=== PATIENT | female | born 1985 | race Caucasian/White ===

== ENCOUNTER 2019-03-30 05:29 | Emergency (ER) | payer SELFPAY ==
--- NOTE | 2019-03-30 05:42 | EDM.PDOC ---
ED HPI GENERAL MEDICAL PROBLEM - General Chief Complaint: Drug or Alcohol Abuse Stated Complaint: AMB Time Seen by Provider: 03/30/19 05:31 - History of Present Illness INITIAL COMMENTS - FREE TEXT/NARRATIVE: HISTORY AND PHYSICAL: History of present illness: The patient is a 34-year-old female who presents via EMS after drinking a large amount of alcohol and doing a line of cocaine and having a small episode of vomiting which had blood in it. Initially EMS arrived at the scene and the patient did not want to, but a friend convinced her to come for evaluation. Here in the ED the patient is denying chest pain shortness of breath abdominal pain and has no nausea. She does not want a large evaluation nor does she want any medications for nausea. She says that she has no extremity complaints and denies . She says that she smokes cigarettes and she has done cocaine in the past and this was not her first event. Review of systems: As per history of present illness and below otherwise all systems reviewed and negative. Past medical history: As per history of present illness and as reviewed below otherwise noncontributory. Surgical history: As per history of present illness and as reviewed below otherwise noncontributory. Social history: No reported history of drug or alcohol abuse. Family history: As per history of present illness and as reviewed below otherwise noncontributory. Physical exam: General: Well-developed well-nourished female who is nontoxic and vital signs are noted by me. HEENT: Atraumatic, normocephalic, pupils reactive, sclerae are slightly injected negative for conjunctival pallor or scleral icterus, mucous membranes moist, throat clear, neck supple, nontender, trachea midline. There is no cervical adenopathy or nuchal rigidity Lungs: Clear to auscultation, breath sounds equal bilaterally, chest nontender. Heart: S1S2, regular, negative for clicks, rubs, or JVD. Abdomen: Soft, nondistended, nontender. On palpation of the upper abdomen and the epigastrium there is absolute no tenderness rebound or guarding. Negative for masses or hepatosplenomegaly. NABS Pelvis: Deferred Genitourinary: Deferred. Rectal: Deferred. Extremities: Atraumatic, no edema and full range of motion without defects or deficits Neurovascular unremarkable. Neuro: Awake, alert, oriented. Cranial nerves II through XII unremarkable. Cerebellum unremarkable. Motor and sensory unremarkable throughout. Exam nonfocal. Diagnostics: EKG and Accu-Chek Therapeutics: Patient denies any interventions such as Zofran and fluids. The patient has a friend at bedside who will take her home and she would like no further evaluation at this time. Impression: Recent alcohol and drug use stable, episode of vomiting Definitive disposition and diagnosis as appropriate pending reevaluation and review of above. ED ROS GENERAL - Review of Systems Review Of Systems: ROS reveals no pertinent complaints other than HPI. ED EXAM, GENERAL - Physical Exam Exam: See Below (See dictation) Course - Orders/Labs/Meds Orders: Active Orders 24 hr Category Date Time Status Blood Glucose Check, Bedside [RC] ONETIME Care 03/30/19 05:37 Ordered EKG Documentation Completion [RC] STAT Care 03/30/19 05:37 Ordered Departure - Departure Time of Disposition: 05:40 Disposition: Home, Self-Care 01 Condition: Good Clinical Impression: Alcohol use, Drug use - Discharge Information Additional Instructions: The following information is given to patients seen in the emergency department who are being discharged to home. This information is to outline your options for follow-up care. We provide all patients seen in our emergency department with a follow-up referral. The need for follow-up, as well as the timing and circumstances, are variable depending upon the specifics of your emergency department visit. If you don't have a primary care physician on staff, we will provide you with a referral. We always advise you to contact your personal physician following an emergency department visit to inform them of the circumstance of the visit and for follow-up with them and/or the need for any referrals to a consulting specialist. The emergency department will also refer you to a specialist when appropriate. This referral assures that you have the opportunity for followup care with a specialist. All of these measure are taken in an effort to provide you with optimal care, which includes your followup. Under all circumstances we always encourage you to contact your private physician who remains a resource for coordinating your care. When calling for followup care, please make the office aware that this follow-up is from your recent emergency room visit. If for any reason you are refused follow-up, please contact the [facility] emergency department at and ask to speak to the emergency department charge nurse. [facility]- Internal Medicine and Family [place] [id number] [place] [address] Push hydration and avoid alcohol use. Please titrate to refrain from using drugs and follow-up with your provider in the clinic or one of hours for reevaluation and further care. You may use [id number] antacids such as Mylanta or Pepto-Bismol if you have and upset stomach. Eating bland diet for the next 24 hours. Return to ER as needed as discussed - My Orders Last 24 Hours: My Active Orders 03/30/19 05:37 Blood Glucose Check, Bedside [RC] ONETIME EKG Documentation Completion [RC] STAT - Assessment/Plan Last 24 Hours: My Active Orders 03/30/19 05:37 Blood Glucose Check, Bedside [RC] ONETIME EKG Documentation Completion [RC] STAT
== END 2019-03-30 05:56 | disposition home or self-care (01) ==
LOC: MERGE 05:29 → MW.ED 05:29
DX: F19.90 Other psychoactive substance use, unspecified, uncomplicated (principal); R11.10 Vomiting, unspecified; Z72.89 Other problems related to lifestyle
CPT/HCPCS: 82962; 93005; 99283; 99284-25

== ENCOUNTER 2022-07-18 10:48 | Emergency (ER) | payer OTHER ==
[2022-07-18] MEDS ORDERED: Ondansetron 4 MG/2 ML SDV IVPUSH ONE (10:52)
[2022-07-18] MEDS ORDERED: Ketorolac 30 MG/ML SDV IVPUSH ONE (10:52)
[2022-07-18] MEDS ORDERED: Sodium Chloride 0.9% 1,000 ML IV ONE (10:52)
[2022-07-18] MEDS ORDERED: Morphine 4 MG/ML Syringe IVPUSH ONE (10:56)
[2022-07-18] MEDS ORDERED: Tamsulosin 0.4 MG Cap.ER PO ONE (11:41)
[2022-07-18 11:47] LABS: CARBON DIOXIDE,CO2 26.7 mmol/L (21.0-32.0); POTASSIUM,K 3.8 mmol/L (3.5-5.1)
== END 2022-07-18 13:01 | disposition home or self-care (01) ==
LOC: MW.ED 10:48
DX: N13.2 Hydronephrosis with renal and ureteral calculous obstruction (principal)
CPT/HCPCS: 36415; 74176; 80053; 81001; 81025; 83690; 85025; 96361; 96374; 96375; 99284; A9270; J1885; J2405; J7030

== ENCOUNTER 2024-05-22 04:57 | Inpatient (IN) | payer OTHER ==
[2024-05-22] MEDS ORDERED: Methylergonovine 0.2 MG/1 ML Amp IM PRN (05:06)
[2024-05-22] MEDS ORDERED: Nalbuphine 10 MG/1 ML Vial IVPUSH PRN (05:06)
[2024-05-22] MEDS ORDERED: Water For Irrigation,Sterile 1,000 ML Container IRR PRN (05:06)
[2024-05-22] MEDS ORDERED: Sodium Chloride 0.9% 20 ML SDV IV PRN (05:06)
[2024-05-22] MEDS ORDERED: Terbutaline 1 MG/ML SDV SUBCUT PRN (05:06)
[2024-05-22] MEDS ORDERED: Ondansetron 4 MG/2 ML SDV IVPUSH PRN (05:06)
[2024-05-22] MEDS ORDERED: Carboprost Tromethamine 250 MCG/1 mL Vial IM PRN (05:06)
[2024-05-22] MEDS ORDERED: Sodium Chloride 0.9% 10 ML Syringe FLUSH PRN (05:06)
[2024-05-22] MEDS ORDERED: Sodium Chloride 0.9% 2.5 ML Syringe FLUSH PRN (05:06)
[2024-05-22] MEDS ORDERED: Lidocaine 1% 50 ML MDV INJECT PRN (05:06)
[2024-05-22] MEDS ORDERED: Oxytocin/0.9 % Sodium Chloride 30 UNIT/500 ML BAG IV SCH (05:15)
[2024-05-22 05:53] LABS: HEMATOCRIT 32.9 % (37.0-47.0); HEMOGLOBIN 11.5 g/dL (12.0-16.0); MEAN CORPUSCULAR HEMOGLOBIN 31.2 pg (28.0-32.0); MEAN CORPUSCULAR VOLUME 89.2 fL (83.0-99.0); MEAN PLATELET VOLUME 12.9 fL (9.4-12.3); PLATELET COUNT,PLT 150 K/uL (150-400); RED BLOOD CELL COUNT 3.69 M/uL (4.10-5.30); WHITE BLOOD CELL COUNT,WBC 9.81 K/uL (3.9-11.3)
[2024-05-22] MEDS: Dinoprostone 10 MG Insert VAG PRN ×2 (06:08→22:40)
[2024-05-22] MEDS ORDERED: ePHEDrine 50 MG/ML SDV IVPUSH PRN (09:40)
[2024-05-22] MEDS ORDERED: dexmedeTOMIDine HCl 200 MCG/2 ML SDV EPIDUR SCH (09:45)
[2024-05-23] MEDS: Butorphanol 2 MG/ML SDV IVPUSH PRN (14:09)
[2024-05-24] MEDS: Lactated Ringers 1,000 ML IV SCH (01:59)
[2024-05-24] MEDS: Oxytocin/0.9 % Sodium Chloride 30 UNIT/500 ML BAG IV SCH (02:00)
[2024-05-24] MEDS: Ropivacaine HCl/PF 400 MG in Premix Bag 1 BAG EPIDUR SCH (09:27)
[2024-05-24] MEDS: Phenylephrine HCl In 0.9% NaCl 1 MG/10 ML Syringe IVPUSH PRN (09:35)
[2024-05-24] MEDS: Misoprostol 200 MCG Tab PO PRN (11:37)
[2024-05-24] MEDS ORDERED: Oxytocin 10 Units/1 ML SDV IM PRN (11:49)
[2024-05-24] MEDS ORDERED: Famotidine 20 MG Tab PO PRN (11:49)
[2024-05-24] MEDS ORDERED: Ibuprofen 800 MG Tab PO PRN (11:49)
[2024-05-24] MEDS ORDERED: Docusate Sodium 100 MG Cap PO PRN (11:49)
[2024-05-24] MEDS ORDERED: Simethicone 80 MG Tab.Chew PO PRN (11:49)
[2024-05-24] MEDS ORDERED: Enoxaparin 40 MG/0.4 ML Syringe SUBCUT SCH (12:00)
[2024-05-24] MEDS: fentaNYL 100 MCG/2 ML SDV ONE (12:06)
[2024-05-24] MEDS: Lanolin 100% Cream 7 GM Tube TOP PRN (12:18)
[2024-05-24 12:21] LABS: PH,UMBILICAL ARTERIAL 7.084 (7.18-7.38); PH,UMBILICAL VENOUS 7.169 (7.25-7.45)
[2024-05-24] MEDS ORDERED: Misoprostol 200 MCG Tab PO PRN (12:38)
[2024-05-24] MEDS: Hydrocortisone 2.5% Crm 30 GM Tube TOP SCH (18:50)
[2024-05-24] MEDS: Witch Hazel Medicated Pads 40/Jar TOP PRN (18:50)
[2024-05-24] MEDS: Acetaminophen 500 MG Tab PO PRN (23:56)
[2024-05-24] MEDS: Enoxaparin 40 MG/0.4 ML Syringe SUBCUT SCH (23:57)
[2024-05-25 07:27] LABS: BASOPHILS ABSOLUTE AUTO 0.04 K/uL (0.00-0.20); BASOPHILS PERCENT AUTO 0.2 % (0.0-1.0); EOSINOPHILS ABSOLUTE AUTO 0.21 K/uL (0.00-0.45); EOSINOPHILS PERCENT AUTO 1.3 % (0.0-6.0); HEMATOCRIT 32.9 % (37.0-47.0); HEMOGLOBIN 11.5 g/dL (12.0-16.0); IMMATURE GRAN ABSOLUTE AUTO 0.07 K/uL (0.00-0.05); IMMATURE GRAN PERCENT AUTO 0.4 % (0.0-0.4); LYMPHOCYTES ABSOLUTE AUTO 2.57 K/uL (1.00-4.80); LYMPHOCYTES PERCENT AUTO 15.8 % (24.0-44.0); MEAN CORPUSCULAR HEMOGLOBIN 31.3 pg (28.0-32.0); MEAN CORPUSCULAR VOLUME 89.6 fL (83.0-99.0); MEAN PLATELET VOLUME 12.2 fL (9.4-12.3); MONOCYTES ABSOLUTE AUTO 1.14 K/uL (0.00-0.80); NEUTROPHILS ABSOLUTE AUTO 12.19 K/uL (1.80-7.70); NEUTROPHILS PERCENT AUTO 75.3 % (41.0-71.0); PLATELET COUNT,PLT 133 K/uL (150-400); RED BLOOD CELL COUNT 3.67 M/uL (4.10-5.30); WHITE BLOOD CELL COUNT,WBC 16.22 K/uL (3.9-11.3)
[2024-05-25] MEDS: Benzocaine/Menthol 20%-0.5% Spray 78 GM Cannister TOP PRN (13:06)
== END 2024-05-25 13:25 | disposition home or self-care (01) | DRG 806 ==
LOC: MW.OB 04:57 → OBSVTOIN 05-24 11:49 → MW.OB 05-24 16:45
PROVIDERS: ADMIT Obstetrics & Gynecology; ATTEND Obstetrics & Gynecology
PROC: 10D07Z6 Extraction of Products of Conception, Vacuum, Via Natural or Artificial Opening (ICD-10-PCS; principal; 2024-05-24)
PROC: 3E0R3BZ Introduction of Anesthetic Agent into Spinal Canal, Percutaneous Approach (ICD-10-PCS; 2024-05-24)
PROC: 00HU33Z Insertion of Infusion Device into Spinal Canal, Percutaneous Approach (ICD-10-PCS; 2024-05-24)
PROC: 30233N1 Transfusion of Nonautologous Red Blood Cells into Peripheral Vein, Percutaneous Approach (ICD-10-PCS; 2024-05-24)
DX: O41.03X0 Oligohydramnios, third trimester, not applicable or unspecified (principal); Z3A.38 38 weeks gestation of pregnancy; Z37.0 Single live birth; O99.12 Other diseases of the blood and blood-forming organs and certain disorders involving the immune mechanism complicating childbirth; O76 Abnormality in fetal heart rate and rhythm complicating labor and delivery; O69.2XX0 Labor and delivery complicated by other cord entanglement, with compression, not applicable or unspecified; O99.02 Anemia complicating childbirth; D68.51 Activated protein C resistance
CPT/HCPCS: 36415; 36430; 51701; 59025; 59409; 82803; 85025; 85027; 85460; 86592; 86850; 86900; 86901; A9270-GY; C1729; J0595; J2371; J2590; J2791; J2795; J3010; J7120